=== PATIENT | female | born 1935 | race Caucasian/White ===

== ENCOUNTER 2018-01-10 17:25 | Inpatient (IN) | payer MEDICARE, BC ==
[2018-01-10] MEDS ORDERED: Sodium Chloride 0.9% 10 ML Syringe FLUSH PRN (17:34)
[2018-01-10] MEDS ORDERED: Sodium Chloride 0.9% 1,000 ML IV ONE (17:36)
[2018-01-10] MEDS ORDERED: Ondansetron 4 MG/2 ML SDV IVPUSH ONE ×2 (17:36→19:40)
--- NOTE | 2018-01-10 17:43 | EDM.PDOC ---
ED HPI GENERAL MEDICAL PROBLEM - General Chief Complaint: General Stated Complaint: leg pain Time Seen by Provider: 01/10/18 17:25 Source of Information: Reports: Patient History Limitations: Reports: No Limitations - History of Present Illness INITIAL COMMENTS - FREE TEXT/NARRATIVE: Patient is brought into the emergency department with complaint of abdominal pain secondary to metastatic abdominal cancer and ovarian cancer as well as lower extremity pain related to open wounds on bilateral lower legs from a wall in the tub last week. Patient has been down in [place] and was due to come back up here however has been too ill to make the transport via public transportation. Over the course of the last couple weeks the patient has progressed significantly. And they are talking possible hospice or end of life cares here in the near future. Patient was brought back to [place] via private chartered jet today. Pt was transported to the emergency department directly from the airport via private vehicle. Patient has not eaten or drank a large amount and greater than 5 days. She also currently has an abdominal port to remove fluid on it every other day basis approximately a liter fluid is coming off. The patient's pulses doing this at home. She was last seen in the clinic about a week ago it is unclear what the appointment was for and is a poor historian confused at times himself. Currently the patient's main complaint is bilateral lower extremity discomfort and the severe nausea. Pt has not seen her oncologist in the recent months according to her PCP notes. She underwent a hysterectomy while in [place] to remove the tumor in the Ovary. According to records the surgery was a success however she then developed a DVT in November and was placed on blood thinners Onset: Gradual Abdomen Pain Score (Numeric/FACES): 2 - Related Data Allergies Allergy/AdvReac Type Severity Reaction Status Date / Time No Known Allergies Allergy Verified 12/16/14 14:05 Home Meds: Home Meds Allopurinol [Zyloprim] 150 mg PO DAILY 01/10/18 [History] Apixaban [Eliquis] 5 mg PO BID 01/10/18 [History] Ezetimibe 10 mg PO DAILY 01/10/18 [History] Furosemide 40 mg PO DAILY 01/10/18 [History] Niraparib Tosylate [Zejula] 200 mg PO DAILY 01/10/18 [History] Potassium Chloride 10 meq PO BID 01/10/18 [History] Sertraline [Zoloft] 25 mg PO DAILY 01/10/18 [History] ED ROS GENERAL - Review of Systems Review Of Systems: See Below Constitutional: Reports: Malaise, Weakness, Fatigue, Decreased Appetite, Weight Loss. Denies: Fever, Chills, Night Sweats, Weight Gain HEENT: Reports: No Symptoms Respiratory: Denies: Shortness of Breath, Cough, Sputum Cardiovascular: Reports: Edema. Denies: Chest Pain, Dyspnea on Exertion Endocrine: Reports: Fatigue GI/Abdominal: Reports: Abdominal Pain, Decreased Appetite, Distension (has an abdominal port in place to remove fluid every other day at home), Nausea, Vomiting. Denies: Bloody Stool : Reports: No Symptoms Musculoskeletal: Reports: Muscle Stiffness Skin: Reports: Mottled, Wound (bilater leg wounds ) Neurological: Reports: Difficulty Walking, Weakness, Gait Disturbance. Denies: Change in Speech Psychiatric: Reports: No Symptoms Free Text/Narrative/Comment: ovarian cancer with metastasis to the abdomen according to family ED EXAM, GENERAL - Physical Exam Exam: See Below Exam Limited By: No Limitations General Appearance: Alert, Mild Distress Nose: Normal Inspection Throat/Mouth: Normal Inspection Head: Atraumatic, Normocephalic Neck: Normal Inspection, Supple, Non-Tender, Full Range of Motion Respiratory/Chest: No Respiratory Distress, Decreased Breath Sounds. No: Wheezing, Stridor, Pleural Rub, Accessory Muscle Use, Splinting Cardiovascular: Tachycardia, Gallop/S3 Peripheral Pulses: 2+: Radial (L), Radial (R), Dorsalis Pedis (L), Dorsalis Pedis (R) GI/Abdominal: Distended, Rigid, Tender, Abnormal Bowel Sounds Back Exam: Normal Inspection Extremities: Mottled, Other (bilateral open wounds on uriarte) Neurological: Alert, Oriented, Other (weakness) Skin Exam: Pallor Course - Vital Signs Last Recorded V/S: Last Vital Signs Temp 36.6 C 01/10/18 17:37 Pulse 99 01/10/18 17:37 Resp 14 01/10/18 17:37 BP 164/96 H 01/10/18 17:37 Pulse Ox 99 01/10/18 17:37 - Orders/Labs/Meds Orders: Active Orders 24 hr Category Date Time Status EKG Documentation Completion [RC] STAT Care 01/10/18 17:34 Active Abdomen Pelvis wo Cont [CT] Stat Exams 01/10/18 17:34 Taken CULTURE BLOOD [BC] Stat Lab 01/10/18 18:08 Results Sodium Chloride 0.9% [Saline Flush] Med 01/10/18 17:34 Active 10 ml FLUSH ASDIRECTED PRN Blood Culture x2 Reflex Set [OM.PC] Stat Oth 01/10/18 17:34 Ordered Peripheral IV Insertion Adult [OM.PC] Stat Oth 01/10/18 17:35 Ordered Medication Orders Sodium Chloride (Saline Flush) 10 ml FLUSH ASDIRECTED PRN PRN Reason: Keep Vein Open Labs: Laboratory Tests 01/10/18 01/10/18 Range/Units 17:34 17:34 WBC 13.6 H (4.0-10.0) x10^3/uL RBC 3.39 L (4.00-5.50) x10^6/uL Hgb 10.7 L (12.0-16.0) g/dL Hct 31.6 L (33.0-47.0) % MCV 93.2 H (78.0-93.0) fL MCH 31.6 (26.0-32.0) pg MCHC 33.9 (32.0-36.0) g/dL RDW Coeff of Tate 12.7 (10.0-15.0) % Plt Count 71 L (130-400) x10^3/uL Add Manual Diff Yes Neutrophils % (Manual) 84 H (50-80) % Lymphocytes % (Manual) 15 L (25-50) % Monocytes % (Manual) 1 L (2-11) % Platelet Estimate Decreased L Poikilocytosis 1+ slight H Anisocytosis 1+ slight H Sodium 129 L* (136-145) mmol/L Potassium 6.4 H* (3.5-5.1) mmol/L Chloride 95 L (98-107) mmol/L Carbon Dioxide 16 L (21-32) mmol/L Anion Gap 24.4 H (10-20) mmol/L BUN 67 H (7-18) mg/dL Creatinine 5.6 H* (0.55-1.02) mg/dL Est Cr Clr Drug Dosing 5.97 mL/min Estimated GFR (MDRD) 7 Glucose 140 H (74-106) mg/dL Calcium 8.4 L (8.5-10.1) mg/dL Corrected Calcium 9.92 (8.5-10.1) mg/dL Total Bilirubin 0.6 (0.2-1.0) mg/dL AST 17 (15-37) U/L ALT 10 L (14-59) U/L Alkaline Phosphatase 120 H (46-116) U/L Troponin I 0.028 (<=0.056) ng/mL C-Reactive Protein 17.9 H (<=0.9) mg/dL NT-Pro-B Natriuret Pep 7763 H (<=450) pg/mL Total Protein 6.4 (6.4-8.2) g/dL Albumin 2.1 L (3.4-5.0) g/dL Globulin 4.3 Albumin/Globulin Ratio 0.49 Amylase 76 (25-115) U/L Lipase 212 (73-393) U/L Meds: Medications Generic Name Dose Route Start Last Admin Trade Name Freq PRN Reason Stop Dose Admin Sodium Chloride 10 ml 01/10/18 17:34 Saline Flush FLUSH ASDIRECTED PRN Keep Vein Open Discontinued Medications Generic Name Dose Route Start Last Admin Trade Name Freq PRN Reason Stop Dose Admin Sodium Chloride 1,000 mls @ 500 mls/hr 01/10/18 17:36 01/10/18 17:46 Normal Saline IV 01/10/18 19:35 500 mls/hr ONETIME ONE Administration Ondansetron HCl 4 mg 01/10/18 17:36 01/10/18 17:46 Zofran IVPUSH 01/10/18 17:37 4 mg ONETIME ONE Administration Ondansetron HCl 4 mg 01/10/18 19:40 Zofran IVPUSH 01/10/18 19:41 ONETIME ONE Departure - Departure Time of Disposition: 19:45 Disposition: Admitted As Inpatient 68 Condition: Poor Clinical Impression: Dehydration, Hyponatremia, Hyperkalemia Congestive heart failure (CHF) Qualifiers: Heart failure type: end stage Qualified Code(s): I50.84 - End stage heart failure Renal failure Qualifiers: Renal failure chronicity: acute Acute renal failure type: unspecified Qualified Code(s): N17.9 - Acute kidney failure, unspecified Failure to thrive Qualifiers: Failure to thrive age range: in adult Qualified Code(s): R62.7 - Adult failure to thrive Ovarian cancer Qualifiers: Laterality: unspecified laterality Qualified Code(s): C56.9 - Malignant neoplasm of unspecified ovary Ascites Qualifiers: Ascites type: malignant Qualified Code(s): R18.0 - Malignant ascites Nausea & vomiting Qualifiers: Vomiting type: unspecified Vomiting Intractability: non-intractable Qualified Code(s): R11.2 - Nausea with vomiting, unspecified - Discharge Information - Problem List Review Problem List Initiated/Reviewed/Updated: Yes - My Orders Last 24 Hours: My Active Orders 01/10/18 17:34 EKG Documentation Completion [RC] STAT Abdomen Pelvis wo Cont [CT] Stat Sodium Chloride 0.9% [Saline Flush] 10 ml FLUSH ASDIRECTED PRN Blood Culture x2 Reflex Set [OM.PC] Stat 01/10/18 17:35 Peripheral IV Insertion Adult [OM.PC] Stat 01/10/18 18:08 CULTURE BLOOD [BC] Stat - Assessment/Plan Last 24 Hours: My Active Orders 01/10/18 17:34 EKG Documentation Completion [RC] STAT Abdomen Pelvis wo Cont [CT] Stat Sodium Chloride 0.9% [Saline Flush] 10 ml FLUSH ASDIRECTED PRN Blood Culture x2 Reflex Set [OM.PC] Stat 01/10/18 17:35 Peripheral IV Insertion Adult [OM.PC] Stat 01/10/18 18:08 CULTURE BLOOD [BC] Stat Assessment:: 1. abdominal pain 2. dehydration 3. failure to thrive 4. abdominal distension Plan: 1. IV started in ER 2. Zofran IV given for nausea 3. IV hydration fluids given for dehydration, decrease diet 4. CT of abdomen for severe ascites and abdominal distention 5. Long discussion was had with the family and the patient regarding treatment plan and options. Family and patient currently would like to be placed on comfort cares looking more at quality versus quantity. Patient does not want any life saving measures or medications to correct any of labs. She would like to be admitted with comfort cares only. Dr. Sullivan will admit the pt for end of life cares and further consultations will be completed on Friday. 6. 1,000ml of fluid was removed from the pt's abdomen from her abdominal port- cath with her at home canisters that the pt was given prior to leaving [place]. 7. Pt does not wish to receive any medication for pain management at this time but would like zofran for anti nausea management.
[2018-01-10] MEDS ORDERED: Prochlorperazine 10 MG/2 ML SDV IV STA (21:01)
[2018-01-10] MEDS ORDERED: Prochlorperazine 10 MG/2 ML SDV IV PRN (22:10)
[2018-01-10] MEDS: Sodium Chloride 0.9% 1,000 ML IV SCH (23:06)
--- NOTE | 2018-01-10 23:17 | PCM.HP ---
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 She has been on various Chemo Rx since then, had a total abdominal hysterectomy this past winter in [place]. She and her have wintered in [place] for a long time and even though she knew her cancer was progressing she wanted to spend 6 months there again so she and her went there in 05/27, to [facility]. She is no longer on Chemo Rx but takes daily niraparib, which sounds like a pale he attended medication that has been shown to increase quality of life. She says she was feeling quite well and walking around independently until just the last few weeks, when she started to get a lot of ascites, so she has an indwelling peritoneal catheter for draining off ascites and has had this drained every 2 days for the past few weeks. She became so ill that the family hired a [employer] airplane to bring her back to [place], she did not want to in [place]. Hospice has been contacted and consult with them is pending. She has a lot of lab abnormalities, discovered on presentation to ER sandhya, but her main symptom is nausea and poor appetite. Zofran 2 in the ER did not help her nausea very much. Medical History: -Quit smoking in -Rx Paxil in for depression, repeat in -DX chronic kidney disease stage 3 since -DX of type 2 diabetes in 06/21 or possibly earlier, has never required any Rx besides diet -HX hyperlipidemia, intolerant to statins so has been on Zetia -Hx nephrolithiasis since -Hx hyperuricemia and gout, had to stop Indocin because of decreased renal function -Hx elevated liver enzymes, improved with decreased alcohol back in , had been having 3 drinks/day -Adenomatous colon polyps 04/17, last colonoscopy had hyperplastic polyps only -B-12 deficiency DX 12/25, Rx B-12 orally, has DX of peripheral neuropathy and has been on Neurontin -DVT 11/26, on Coumadin, then Eliquis, continuous because of increased thrombosis risk with cancer Surgical History: -Para 3 -Tonsillectomy -ESWL 2 in -SCC excised L knee and R uriarte in -BCC excised L cheek in -L3 surgery 08/15 for back pain -Bilateral cataract extraction in -Excision of lipomas from her arms in -Dupuytrens contracture release R in 02/19 -L4 to 5 discectomy left in 07/24 for back pain Family History -Mother had Parkinsons and possibly Alzheimer-type dementia, and colon cancer -Father had NE and AAA -Has 3 sons, [place] Social History: Lives with who is retired from [employer]. One of their 3 sons lives in town. They have wintered in [place] and [place] for many years. Primary care from [facility] for many years. Systems Review: This was limited because she is in distress from her nausea and her terminal condition. 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 Lafleur; now her creatinine is up to 5.6, BUN 67, estimated GFR 7 Musculoskeletal: Has been on Rx for chronic back pain Skin: She denies any pressure sores, says hasnt been in bed much until just a few weeks ago Heme: Note she is on Eliquis for Hx of DVT and her cancer; platelets were 71 K in ER Neurologic: Hx peripheral neuropathy, has not been taking heard Neurontin recently Psych: Has not been taking her Zoloft recently Physical Exam: -General: She is alert and answers questions appropriately and congenial even though in considerable distress from her nausea -ENT: Grossly unremarkable -Cardiac: Heart sounds normal and regular; no ankle edema -Pulmonary: Lung sounds clear, obvious no dyspnea -Abdomen: Tender, distended from ascites, has a peritoneal catheter -Extremities: No edema, did not examine further because she is chilled and doesn t want to be uncovered Impression: -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, terminal -Chronic back pain, S/P laminectomy 2 -Hyponatremia -Hyperkalemia -Acute kidney failure, estimated GFR 7 Plan: -Hospice consult is pending -Agrees to comfort cares, trying Compazine because Zofran wasnt very effective for the nausea -Because her intake is poor and she does not have orthopnea, continue to run maintenance IV at 50 mL for now Abdomen Pain Score (Numeric/FACES): 2 - Related Data Allergies/Adverse Reactions: Allergies Allergy/AdvReac Type Severity Reaction Status Date / Time atorvastatin [From Lipitor] Allergy Cough Verified 01/10/18 22:38 silver Allergy Rash Verified 01/10/18 22:40 [From Tegaderm AG Mesh] Sulfa (Sulfonamide Allergy Other Verified 01/10/18 22:39 Antibiotics) Home Medications: Home Meds Allopurinol [Zyloprim] 150 mg PO DAILY 01/10/18 [History] Apixaban [Eliquis] 5 mg PO BID 01/10/18 [History] Ezetimibe 10 mg PO DAILY 01/10/18 [History] Furosemide 40 mg PO DAILY 01/10/18 [History] Niraparib Tosylate [Zejula] 200 mg PO DAILY 01/10/18 [History] Potassium Chloride 10 meq PO BID 01/10/18 [History] Sertraline [Zoloft] 25 mg PO DAILY 01/10/18 [History] Past Medical History Cardiovascular History: Reports: High Cholesterol, Hypertension Genitourinary History: Reports: Renal Calculus, Renal Disease, Other (See Below) Other Genitourinary History: Uterine prolapse Musculoskeletal History: Reports: Gout Psychiatric History: Reports: Anxiety, Depression Endocrine/Metabolic History: Reports: Diabetes, Type II Hematologic History: Reports: B12 Deficiency Oncologic (Cancer) History: Reports: Ovarian, Other (See Below) Other Oncologic History: Skin Ca, mets to abdomen - Infectious Disease History Infectious Disease History: Reports: MRSA - Past Surgical History Female Surgical History: Reports: Hysterectomy Musculoskeletal Surgical History: Reports: Other (See Below) Other Musculoskeletal Surgeries/Procedures:: Lumbar disectomy Social & Family History - Tobacco Use Smoking Status *Q: Former Smoker Used Tobacco, but Quit: Yes Month/Year Tobacco Last Used: 1974 - Recreational Drug Use Recreational Drug Use: No H&P Review of Systems - Review of Systems: Review Of Systems: See Below Exam - Exam Exam: See Below - Vital Signs Vital Signs: Last Vital Signs Temp 36.5 C 01/10/18 19:50 Pulse 95 01/10/18 19:50 Resp 14 01/10/18 19:50 BP 114/68 01/10/18 19:50 Pulse Ox 100 01/10/18 19:50 Weight: 47.219 kg - Patient Data Lab Results Last 24 hrs: Laboratory Results - last 24 hr 01/10/18 01/10/18 Range/Units 17:34 17:34 WBC 13.6 H (4.0-10.0) x10^3/uL RBC 3.39 L (4.00-5.50) x10^6/uL Hgb 10.7 L (12.0-16.0) g/dL Hct 31.6 L (33.0-47.0) % MCV 93.2 H (78.0-93.0) fL MCH 31.6 (26.0-32.0) pg MCHC 33.9 (32.0-36.0) g/dL RDW Coeff of Tate 12.7 (10.0-15.0) % Plt Count 71 L (130-400) x10^3/uL Add Manual Diff Yes Neutrophils % (Manual) 84 H (50-80) % Lymphocytes % (Manual) 15 L (25-50) % Monocytes % (Manual) 1 L (2-11) % Platelet Estimate Decreased L Poikilocytosis 1+ slight H Anisocytosis 1+ slight H Sodium 129 L* (136-145) mmol/L Potassium 6.4 H* (3.5-5.1) mmol/L Chloride 95 L (98-107) mmol/L Carbon Dioxide 16 L (21-32) mmol/L Anion Gap 24.4 H (10-20) mmol/L BUN 67 H (7-18) mg/dL Creatinine 5.6 H* (0.55-1.02) mg/dL Est Cr Clr Drug Dosing 5.97 mL/min Estimated GFR (MDRD) 7 Glucose 140 H (74-106) mg/dL Calcium 8.4 L (8.5-10.1) mg/dL Corrected Calcium 9.92 (8.5-10.1) mg/dL Total Bilirubin 0.6 (0.2-1.0) mg/dL AST 17 (15-37) U/L ALT 10 L (14-59) U/L Alkaline Phosphatase 120 H (46-116) U/L Troponin I 0.028 (<=0.056) ng/mL C-Reactive Protein 17.9 H (<=0.9) mg/dL NT-Pro-B Natriuret Pep 7763 H (<=450) pg/mL Total Protein 6.4 (6.4-8.2) g/dL Albumin 2.1 L (3.4-5.0) g/dL Globulin 4.3 Albumin/Globulin Ratio 0.49 Amylase 76 (25-115) U/L Lipase 212 (73-393) U/L Result Diagrams: 01/10/18 17:34 01/10/18 17:34 Rob Results Last 24 hrs: Microbiology 01/10/18 18:08 Anaerobic Blood Culture - Final Blood - Venous Problem List Initiated/Reviewed/Updated: Yes Orders Last 24hrs: Active Orders 24 hr Category Date Time Status Admission Status [Patient Status] [ADT] Routine ADT 01/10/18 19:04 Active Patient Status [ADT] Routine ADT 01/10/18 21:57 Active Communication Order [RC] ROUTINE Care 01/10/18 22:15 Active EKG Documentation Completion [RC] STAT Care 01/10/18 17:34 Active Oxygen Therapy [RC] PRN Care 01/10/18 21:57 Active VTE/DVT Education [RC] PER UNIT ROUTINE Care 01/10/18 21:57 Active Vital Signs [RC] Q4H Care 01/10/18 21:57 Active Regular Diet [DIET] Diet 01/11/18 Breakfast Active Abdomen Pelvis wo Cont [CT] Stat Exams 01/10/18 17:34 Taken CULTURE BLOOD [BC] Stat Lab 01/10/18 18:08 Results Apixaban [Eliquis] Med 01/11/18 08:00 Active 5 mg PO BID Niraparib Tosylate [Zejula] Med 01/11/18 08:00 Pending 200 mg PO DAILY Prochlorperazine [Compazine] Med 01/10/18 22:10 Active 10 mg IV Q6H PRN Sodium Chloride 0.9% [Normal Saline] 1,000 ml Med 01/10/18 22:15 Active IV ASDIRECTED Sodium Chloride 0.9% [Saline Flush] Med 01/10/18 17:34 Active 10 ml FLUSH ASDIRECTED PRN Blood Culture x2 Reflex Set [OM.PC] Stat Oth 01/10/18 17:34 Ordered Peripheral IV Insertion Adult [OM.PC] Stat Oth 01/10/18 17:35 Ordered Resuscitation Status Routine Resus Stat 01/10/18 21:57 Ordered Medication Orders Apixaban (Eliquis) 5 mg PO BID ILEANA Sodium Chloride (Normal Saline) 1,000 mls @ 50 mls/hr IV ASDIRECTED ILEANA Last Admin: 01/10/18 23:06 Dose: 50 mls/hr Non-Formulary Medication (Niraparib Tosylate [Zejula]) 200 mg PO DAILY ILEANA Prochlorperazine Edisylate (Compazine) 10 mg IV Q6H PRN PRN Reason: Nausea Sodium Chloride (Saline Flush) 10 ml FLUSH ASDIRECTED PRN PRN Reason: Keep Vein Open
[2018-01-11] MEDS: Apixaban 2.5 MG Tab PO SCH ×2 (08:17→19:49)
--- NOTE | 2018-01-11 10:40 | PCM.PN ---
- General Info Date of Service: 01/11/18 Admission Dx/Problem (Free Text): History: She is giving Compazine IV for nausea, still definitely a problem, but does improve with each time that she gets the Compazine. She was able to eat a small amount of oatmeal this morning. She does not C/O pain. Some fluid was taken off of her abdomen in the ER yesterday prior to admit through the peritoneal port. She is getting IV fluid but has a tenuous IV. Nurses wonder about her vascular report, patient said it is not to be used because it has not been used for a year, but might need to think about trying if she continues to need IV access and this becomes more difficult. She has some abrasions on the pretibial areas of both lower legs where she fell in the bathtub a few days before coming back to [place]. She was quite tired last night, because the airplane trip in a twin engine turbo prop took 4 hours and she found it quite tiring. She feels a little better today. Hospice consult is still pending. Exam: -Her abdomen has some ascites but not tender or tense -Skin on her lower legs is stressed over the abrasions but has a lot of small crusting lesions and the skin appears very frail -She answers questions appropriately, is holding an emesis bag again this morning, having just received an IV dose of Compazine. Not actually vomiting. Impression: -Ascites, cachexia, nausea secondary to peritoneal metastases of clear-cell uterine carcinoma -Marked hyponatremia and hyperkalemia yesterday, should recheck that once even though she will be going on hospice care for comfort Plan: -[facility] tomorrow -[facility] will assume care tomorrow -Hospice consult pending, should talk with them about the possibility of using that longunused vascular port - Patient Data Vitals - Most Recent: Last Vital Signs Temp 36.5 C 01/10/18 19:50 Pulse 95 01/10/18 19:50 Resp 14 01/10/18 19:50 BP 114/68 01/10/18 19:50 Pulse Ox 100 01/10/18 21:57 Weight - Most Recent: 47.219 kg I&O - Last 24 Hours: Intake & Output 01/10/18 01/11/18 01/11/18 22:59 06:59 14:59 Intake Total 1013 557 240 Output Total 250 Balance 1013 307 240 Lab Results Last 24 Hours: Laboratory Results - last 24 hr 01/10/18 01/10/18 Range/Units 17:34 17:34 WBC 13.6 H (4.0-10.0) x10^3/uL RBC 3.39 L (4.00-5.50) x10^6/uL Hgb 10.7 L (12.0-16.0) g/dL Hct 31.6 L (33.0-47.0) % MCV 93.2 H (78.0-93.0) fL MCH 31.6 (26.0-32.0) pg MCHC 33.9 (32.0-36.0) g/dL RDW Coeff of Tate 12.7 (10.0-15.0) % Plt Count 71 L (130-400) x10^3/uL Add Manual Diff Yes Neutrophils % (Manual) 84 H (50-80) % Lymphocytes % (Manual) 15 L (25-50) % Monocytes % (Manual) 1 L (2-11) % Platelet Estimate Decreased L Poikilocytosis 1+ slight H Anisocytosis 1+ slight H Sodium 129 L* (136-145) mmol/L Potassium 6.4 H* (3.5-5.1) mmol/L Chloride 95 L (98-107) mmol/L Carbon Dioxide 16 L (21-32) mmol/L Anion Gap 24.4 H (10-20) mmol/L BUN 67 H (7-18) mg/dL Creatinine 5.6 H* (0.55-1.02) mg/dL Est Cr Clr Drug Dosing 5.97 mL/min Estimated GFR (MDRD) 7 Glucose 140 H (74-106) mg/dL Calcium 8.4 L (8.5-10.1) mg/dL Corrected Calcium 9.92 (8.5-10.1) mg/dL Total Bilirubin 0.6 (0.2-1.0) mg/dL AST 17 (15-37) U/L ALT 10 L (14-59) U/L Alkaline Phosphatase 120 H (46-116) U/L Troponin I 0.028 (<=0.056) ng/mL C-Reactive Protein 17.9 H (<=0.9) mg/dL NT-Pro-B Natriuret Pep 7763 H (<=450) pg/mL Total Protein 6.4 (6.4-8.2) g/dL Albumin 2.1 L (3.4-5.0) g/dL Globulin 4.3 Albumin/Globulin Ratio 0.49 Amylase 76 (25-115) U/L Lipase 212 (73-393) U/L Rob Results Last 24 Hours: Microbiology 01/10/18 18:08 Anaerobic Blood Culture - Final Blood - Venous Med Orders - Current: Current Medications Apixaban (Eliquis) 5 mg PO BID [facility] Last Admin: 01/11/18 08:17 Dose: Not Given Sodium Chloride (Normal Saline) 1,000 mls @ 50 mls/hr IV ASDIRECTED [facility] Last Admin: 01/10/18 23:06 Dose: 50 mls/hr Non-Formulary Medication (Niraparib Tosylate [Zejula]) 200 mg PO DAILY [facility] Prochlorperazine Edisylate (Compazine) 10 mg IV Q6H PRN PRN Reason: Nausea Last Admin: 01/11/18 09:17 Dose: 10 mg Sodium Chloride (Saline Flush) 10 ml FLUSH ASDIRECTED PRN PRN Reason: Keep Vein Open Last Admin: 01/11/18 09:17 Dose: 10 ml Discontinued Medications Sodium Chloride (Normal Saline) 1,000 mls @ 500 mls/hr IV ONETIME ONE Stop: 01/10/18 19:35 Last Admin: 01/10/18 17:46 Dose: 500 mls/hr Ondansetron HCl (Zofran) 4 mg IVPUSH ONETIME ONE Stop: 01/10/18 17:37 Last Admin: 01/10/18 17:46 Dose: 4 mg Ondansetron HCl (Zofran) 4 mg IVPUSH ONETIME ONE Stop: 01/10/18 19:41 Last Admin: 01/10/18 19:43 Dose: 4 mg Prochlorperazine Edisylate (Compazine) 10 mg IV ONETIME STA Stop: 01/10/18 21:02 Last Admin: 01/10/18 21:17 Dose: 10 mg - Problem List Review Problem List Initiated/Reviewed/Updated: Yes - My Orders Last 24 Hours: My Active Orders 01/10/18 21:57 Patient Status [ADT] Routine Oxygen Therapy [RC] .PRN Vital Signs [RC] .PRN Resuscitation Status Routine 01/10/18 22:10 Prochlorperazine [Compazine] 10 mg IV Q6H PRN 01/10/18 22:15 Communication Order [RC] 08,20 Sodium Chloride 0.9% [Normal Saline] 1,000 ml IV ASDIRECTED 01/11/18 08:00 Apixaban [Eliquis] 5 mg PO BID Niraparib Tosylate [Zejula] 200 mg PO DAILY 01/11/18 08:55 Consult to Hospice [CONS] Routine 01/11/18 Breakfast Regular Diet [DIET] 01/12/18 07:30 BASIC METABOLIC PANEL,BMP [CHEM] Routine
[2018-01-11] MEDS: Sodium Chloride 0.9% 1,000 ML IV SCH (22:36)
[2018-01-12] MEDS ORDERED: HYDROmorphone 1 MG/ML Syringe IVPUSH PRN (08:43)
[2018-01-12] MEDS ORDERED: Ondansetron 4 MG Tab.DIS PO PRN (08:46)
[2018-01-12] MEDS ORDERED: LORazepam Conc Solution 2 MG/ML 30 ML Bottle PO PRN (08:47)
[2018-01-12] MEDS: Apixaban 2.5 MG Tab PO SCH (08:56)
[2018-01-12] MEDS: NIRAPARIB TOSYLATE PO SCH (08:56)
--- NOTE | 2018-01-12 09:54 | PN ---
Progress Note for [facility] Date: 01/12/2018 Room #: VM.222 SUBJECTIVE: The patient is an 82-year-old female, who was admitted on 01/10/2018, with severe weakness, debilitation related to her progressive cancer. She was placed on acute care, received IV fluids. She was placed on code level 2 status as her renal function has severely been limited and her cancer is in a terminal state. The patient has been having ascites problems and does have a catheter draining ascites every other day at home per family routine. The patient since being here has been able to rest a little bit better. She really does not have pain, but has severe weakness, unable to stand. She does not have much appetite. She is very drowsy, lethargic. Her family is present in the room with her with her son, [id number] and . The patient does not have a desire to return home in her current state as she feels that she needs much cares and family is not able to give care for her. The family does provide some lab work from [place] about how her lab work had been approximately a month ago, but nothing may have been done recently. It is noted that her most recent lab work done on 12/17/2017, showed a white blood cell count was 12.9, hemoglobin was 12.1, platelet counts were 369. Her BUN was 29, creatinine was 1.78, GFR was 31, sodium was 134, potassium 4.5. LFTs were normal. CA-125 was 621.4. OBJECTIVE: Vital Signs: Her weight is 47.2 kg, which is the same since admission. Her temperature is 36.8, pulse is 108, blood pressure is 96/50, pulse is 65, respirations are 14, sats are 98%. General: The patient is extremely weak, lying in bed, difficulty lifting her head. She is very cachectic looking, slightly jaundiced, pale. She has bruising on extensor surfaces of her arms. HEENT: Her mucous membranes are still dry. Heart: Regular rate and rhythm. Lungs: Have diminished breath sounds on bases. Abdomen: Very distended with ascites. It is soft, slightly tender. There is a catheter that is wrapped. Bowel sounds are present. Extremities: Lower extremities have some bruising and scabs on them. There is no edema. Neurologic: The patient is very weak with moving extremities. Psychiatric: The patient is weak, possibly forgetful. Unclear if she retains what we are telling her. She is not actively asked questions. LABORATORY DATA: Her lab today shows her hemoglobin is 8.1, platelet counts are 17 with 84 segs, 14 lymphocytes. Sodium is 131, potassium 5.5, creatinine is improved to 4.6, BUN is 60, which is improved, glucose is 94, calcium is 7.7. On admit, her AST was 17, ALT 10, alkaline phosphatase 120. Troponin was 0.028. CRP was 17.9. ProBNP is 7763. IMPRESSION: 1. 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 2. Cachexia. 3. Hyponatremia. 4. Hyperkalemia. 5. Chronic kidney disease with exacerbation. 6. Thrombocytopenia. 7. Anemia. 8. Deep vein thrombosis of her legs. 9. History of MRSA. 10.Indwelling ureteral stent. 11.Chronic urinary tract infection. PLAN: We will have the patient visit with [facility] today to decide about level of care. We will offer p.r.n. Dilaudid, alprazolam for the patient as well as we will try some Zofran for nausea as she does seem to have quite a bit of nausea. Today, she will have her ascites drained, which will show nursing staff how he had been doing it and due to her profound weakness, I do not find that the patient is able to return to her home and most likely will need Palliative Care to help her in her terminal processes. I feel she most likely would not live more than a week at her current level of care. We will also stop her Eliquis. The patient is not currently on any antibiotics and we will not treat with antibiotics. She currently does have IV fluids running, which we will continue for another day and then decide if she needs those to keep her blood pressure up versus if they are just prolonging her dying process. GM01/12/2018 08:57:11 MODL: 01/12/2018 09:45:40 /[id number]
[2018-01-12] MEDS: Sodium Chloride 0.9% 1,000 ML IV SCH (18:55)
--- NOTE | 2018-01-13 09:13 | PN ---
Progress Note for [facility] Date: 01/13/2018 Room #: VM.222 SUBJECTIVE: The patient rested better last evening. She has had a little bit more to eat. She did have some ascites drained from her last evening. She has met with [facility] and they have opted to place her on swing bed status today for palliative care purposes for end of life cares as family is not able to care for her at home. The patient is having problems with back discomfort and finds it difficult to get a comfortable position in her bed. Otherwise, offers no concerns. Her son Blayne is present in the room today. OBJECTIVE: Vital Signs: Have not been checked yet today. Skin: Pale with bruising present. ENT: Her mucous membranes are more hydrated. Heart: Regular rate and rhythm. Lungs: Clear. Abdomen: Distended. Bowel sounds are present, soft, and nontender. IMPRESSION: 1. Terminal metastatic uterine/ovarian cancer. 2. Thrombocytopenia, severe. 3. Acute kidney injury. 4. Hyperkalemia. 5. Deep venous thrombosis. PLAN: The patient will need Palliative Care Services and so we will place her on swing bed. We will add a foam crate mattress for her bed for comfort. We will switch her to subcu lines versus using her port if available for her IV medicines. We will try her on Prilosec to see if this also can help with some of her nausea. Please refer to discharge summary. GM01/13/2018 08:44:41 MODL: 01/13/2018 09:05:02 /[id number]
[2018-01-13] MEDS ORDERED: Omeprazole 20 MG Cap.CR PO SCH (09:15)
--- NOTE | 2018-01-13 09:37 | DISCH ---
PRIMARY DIAGNOSES: 1. Debilitation secondary to metastatic ovarian uterine cancer. 2. Acute kidney injury. 3. Hyperkalemia. 4. Dehydration. 5. Anemia. 6. Thrombocytopenia. 7. Deep venous thrombosis. 8. Hypertension. 9. Depression. 10.Chronic anxiety disorder. 11.Type 2 diabetes mellitus. 12.Methicillin-resistant Staphylococcus aureus infection. 13.Indwelling ureteral stent due to urinary outlet obstruction. 14.Hyperlipidemia. 15.Right neck node. 16.Elevated liver function tests. 17.Vitamin B12 deficiency. SUMMARY OF ADMIT HISTORY AND PHYSICAL: The patient is an 82-year-old female who had returned to [place] on 01/10/2018 because of her progressive cancer with inability to be cared for solely by her and they were returning from their [place] winter home. They had flown back by private jet and had gone directly from the plane to the emergency room as the patient was unable to stand. She had been having frequent falls. She has a history of high-grade stage IV uterine cancer with clear cell with omental mets noted. Also, elevated CA-125. The patient had recently undergone abdominal hysterectomy in early 11/2017 because of severe back pain, did have relief of back pain, but then did develop bilateral blood clots in her legs. She was placed on Eliquis for treatment of this. To note, the patient had then developed severe ascites and had an indwelling port to help drain ascites that her was trained in doing and she would have drainage every 2 days for the past 2 weeks. The patient had taken a fall at home and her was unable to transfer for toileting cares and it was not felt that she had family support to help care for her. In the emergency department, her vital signs on presentation showed that she was slightly tachycardic. She was hypotensive. She had no fever. She was very cachectic appearing and very dehydrated. Lungs were clear to auscultation. Heart was regular rate and rhythm. Abdomen was tender, distended from ascites with peritoneal catheter present. She was extremely weak, slightly confused. SUMMARY OF HOSPITAL COURSE: The patient was admitted to Acute Care to receive IV hydration. She received some Zofran that had not helped, so Compazine was started and further status was to be determined. Family was interested in visiting with Hospice about potential cares. She did have blood cultures that were obtained. Her lab work on admission showed that her white blood cell count was 13.6, hemoglobin 10.7, platelets were 71 with 85 segs, 15 lymphocytes, and 1 mono. Sodium was 129, potassium 6.4, creatinine 5.6, GFR 7, BUN 67, glucose 140. AST 17, ALT 10, alkaline phosphatase 120. Troponin 0.028. CRP 17.9. ProBNP 7763, albumin 2.1, amylase 76, lipase 212. Her weight on admission was 47.2 kg. Saturations were 100%, pulse rate was 95, blood pressure is 114/68, respiratory rate was 14. She received IV hydration. She was not started on antibiotics as family had switched her code level status from code level 1 to comfort cares as they did not want to consider dialysis or travel to [place] for further definitive care treatment. It was noted that the patient had very poor intake. Her blood pressure dropped down to 96/50, pulse was up to 105. She was extremely lethargic. Her lab by 01/12/2018 showed that her white blood cell count had improved to 10.2, hemoglobin had dropped to 8.1, platelets had dropped to 17, with 84 segs, 14 lymphocytes. Sodium had improved to 131, potassium improved to 5.5, creatinine improved 4.6, GFR 9, calcium was 7.7, felt to be due to malnutrition as corrected calcium was normal at 9.9 on admission. Conversations were had with Hospice as well as Construction [employer] about plan of care for the patient and it was felt that they desired Palliative Care Services on swing bed here at the hospital. She could not be cared for at her home by her due to her weakness and debilitation. The patient had her IV fluids stopped after current IV bag was done running in. She will either be switched to using her port that she has or subcu line. She will have her peritoneal catheter drained every other day with 1000 mL if able. She currently does not have a Marie catheter placed, but if she becomes so weak and debilitated, then that could be placed. We will start Prilosec 20 mg one pill daily at the time of transfer to see if this helps with some of her nausea. MEDICATIONS: Her other medications at transfer will be Dilaudid 0.25 mg IV q.3 hours p.r.n., lorazepam 0.5 mg q.4 hours p.r.n. anxiety, Zofran 4 mg q.4 hours p.r.n. ODT nausea, Compazine 10 mg IV q.6 hours p.r.n. It is felt that patient will be terminal that she will not be able to return to her home environment. Comfort cares were given also to the family. The patient was appreciative of care given to her. In my absence, Dr. Yoshi Quispe will follow the patient until I return on 02/02/2018. GM01/13/2018 08:51:59 MODL: 01/13/2018 09:30:13 /[id number]
[2018-01-13 09:55] VITALS: BP 111/72
== END 2018-01-13 10:47 | disposition swing bed (61) | DRG 641 ==
LOC: VM.ED 17:25 → VM.MS 19:04
PROVIDERS: ADMIT Family Medicine; ATTEND Family Medicine
DX: R10.9 Unspecified abdominal pain (principal); E86.0 Dehydration; C78.6 Secondary malignant neoplasm of retroperitoneum and peritoneum; R18.0 Malignant ascites; N17.9 Acute kidney failure, unspecified; R64 Cachexia; R62.7 Adult failure to thrive; C56.9 Malignant neoplasm of unspecified ovary; I82.4Z3 Acute embolism and thrombosis of unspecified deep veins of distal lower extremity, bilateral; R11.2 Nausea with vomiting, unspecified; R14.0 Abdominal distension (gaseous); Z86.718 Personal history of other venous thrombosis and embolism; N13.8 Other obstructive and reflux uropathy; Z79.899 Other long term (current) drug therapy; R53.1 Weakness; I13.0 Hypertensive heart and chronic kidney disease with heart failure and stage 1 through stage 4 chronic kidney disease, or unspecified chronic kidney disease; Z68.1 Body mass index [BMI] 19.9 or less, adult; Z66 Do not resuscitate; Z51.5 Encounter for palliative care; E87.1 Hypo-osmolality and hyponatremia; E11.22 Type 2 diabetes mellitus with diabetic chronic kidney disease; E78.5 Hyperlipidemia, unspecified; E79.0 Hyperuricemia without signs of inflammatory arthritis and tophaceous disease; E11.42 Type 2 diabetes mellitus with diabetic polyneuropathy; G89.29 Other chronic pain; M54.9 Dorsalgia, unspecified; E87.5 Hyperkalemia; F32.9 Major depressive disorder, single episode, unspecified; F41.9 Anxiety disorder, unspecified; D69.6 Thrombocytopenia, unspecified; D64.9 Anemia, unspecified; E53.8 Deficiency of other specified B group vitamins; S80.812A Abrasion, left lower leg, initial encounter; S80.811A Abrasion, right lower leg, initial encounter; W18.30XA Fall on same level, unspecified, initial encounter; Y92.002 Bathroom of unspecified non-institutional (private) residence as the place of occurrence of the external cause; R29.6 Repeated falls; I50.9 Heart failure, unspecified; N18.9 Chronic kidney disease, unspecified; Z85.43 Personal history of malignant neoplasm of ovary; Z92.21 Personal history of antineoplastic chemotherapy; Z90.710 Acquired absence of both cervix and uterus; Z87.891 Personal history of nicotine dependence; Z87.19 Personal history of other diseases of the digestive system; Z79.01 Long term (current) use of anticoagulants; Z80.0 Family history of malignant neoplasm of digestive organs; Z88.2 Allergy status to sulfonamides; Z88.8 Allergy status to other drugs, medicaments and biological substances; Z85.828 Personal history of other malignant neoplasm of skin; Z86.14 Personal history of Methicillin resistant Staphylococcus aureus infection
CPT/HCPCS: 36415; 74176; 80053; 82150; 83690; 83880; 84484; 85025; 86140; 87040; 93005; 96361; 96374; 99284; 99285; J2405; J7040; 80048; 96376; A9270-GY; J0780; J7030; J7050

== ENCOUNTER 2018-01-13 10:48 | Inpatient (IN) | payer MEDICARE, BC ==
[2018-01-13] MEDS: Calcium Carbonate 750 MG Tab.Chew PO PRN (18:32)
[2018-01-14] MEDS: Omeprazole 20 MG Cap.CR PO SCH (07:43)
[2018-01-14] MEDS ORDERED: LORazepam 0.5 MG Tab PO PRN (08:18)
[2018-01-14] MEDS: Ondansetron 4 MG Tab.DIS PO PRN (09:25)
[2018-01-14] MEDS: Calcium Carbonate 750 MG Tab.Chew PO PRN (09:26)
[2018-01-14] MEDS: HYDROmorphone 1 MG/ML Syringe IVPUSH PRN (11:33)
[2018-01-14] MEDS: Prochlorperazine 10 MG/2 ML SDV IV PRN (11:33)
[2018-01-14] MEDS: Dexamethasone 4 MG Tab PO SCH ×2 (15:01→17:45)
[2018-01-14] MEDS: PROMETHAZINE TOP PRN (17:44)
[2018-01-15] MEDS: Ondansetron 4 MG Tab.DIS PO PRN (00:10)
[2018-01-15] MEDS: HYDROmorphone 1 MG/ML Syringe IVPUSH PRN ×4 (00:43→13:00)
[2018-01-15] MEDS: Prochlorperazine 10 MG/2 ML SDV IV PRN ×2 (05:02→13:00)
[2018-01-15] MEDS: Omeprazole 20 MG Cap.CR PO SCH (07:41)
[2018-01-15] MEDS: LORazepam Conc Solution 2 MG/ML 30 ML Bottle PO PRN ×2 (08:17→13:00)
[2018-01-15] MEDS: PROMETHAZINE TOP PRN (08:18)
[2018-01-15] MEDS: Dexamethasone 4 MG Tab PO SCH (08:18)
[2018-01-15 14:21] VITALS: BP 57/38
--- NOTE | 2018-01-18 13:02 | DISCH ---
PRIMARY DIAGNOSES: 1. Stage IV clear cell carcinoma of uterus. 2. Malignant ascites. 3. Acute kidney injury. 4. Chronic kidney disease.stage 3 5. Thrombocytopenia. 6. Deep venous thrombosis of right leg. 7. Type 2 diabetes mellitus. 8. 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 9. Hydronephrosis with ureteral stent indwelling. SUMMARY OF SWING BED DISCHARGE: The patient was admitted to swing bed on 01/13/2018 for palliative care regarding her terminal metastatic cancer. The patient had arrived to acute care on 01/17/2018 with debilitation, weakness, dehydration, acute kidney injury with chronic kidney disease. Received IV hydration and antiemetics. However, it was felt that family wanted her just to be kept comfortable and pain control with anxiety control, and so she was placed on swing bed. While on swing bed, she received some IV morphine as well as some lorazepam for comfort measures. She had been placed on some Prilosec for GI upset. The patient had been on some dexamethasone as well. The patient did not receive therapies. Family was present and attentive. The patient quietly on 01/15/2018 with family present. The patient also did receive Spiritual Care consult as well as Social Service consult. GM01/18/2018 12:34:16 MODL: 01/18/2018 12:58:58 /[id number] ROGELIO
== END 2018-01-15 18:00 | disposition expired | DRG 951 ==
LOC: VM.MS 10:48
PROVIDERS: ADMIT Family Medicine; ATTEND Family Medicine
DX: Z51.5 Encounter for palliative care (principal); C78.6 Secondary malignant neoplasm of retroperitoneum and peritoneum; R18.8 Other ascites; N13.8 Other obstructive and reflux uropathy; R53.1 Weakness; R11.0 Nausea; Z85.42 Personal history of malignant neoplasm of other parts of uterus; R53.81 Other malaise; Z66 Do not resuscitate; I10 Essential (primary) hypertension; E11.9 Type 2 diabetes mellitus without complications; Z79.899 Other long term (current) drug therapy; R29.6 Repeated falls; Z90.710 Acquired absence of both cervix and uterus; Z86.718 Personal history of other venous thrombosis and embolism; Z79.01 Long term (current) use of anticoagulants
CPT/HCPCS: 87070; A9270-GY; J0780; J1170; J8540